=== PATIENT | female | born 1940 | race Caucasian/White ===

== ENCOUNTER → 2017-01-25 | Outpatient (CLI) | payer OTHER ==
[~2017-01-25] MED LIST: AMBIEN10 M1 PO; EFFEXOR XR150 MG PO; LANSOPRAZOLE30 MG PO; MULTI VITAMINS1 TAB PO; NEURONTIN300 MG PO; POTASSIUM99 M1 PO; PREVACID30 M1 PO; SYNTHROID,LEVO75 MCG PO; XANAX0.25 MG PO
[2017-01-26 16:09] LABS: FECAL WBC Final report (None Seen)
== END | disposition home or self-care (01) ==
LOC: US 07:21
PROVIDERS: Nurse Practitioner
DX: N28.1 Cyst of kidney, acquired (principal); R10.13 Epigastric pain; R19.7 Diarrhea, unspecified

== ENCOUNTER → 2017-01-26 | Outpatient (CLI) | payer OTHER ==
[~2017-01-26] MED LIST changes: +EFFEXOR XR75 M1 PO; +NEURONTIN600 MG PO
[2017-01-27 18:10] LABS: STOOL PH 5.5 (7.0-7.5)
[2017-01-28 13:05] LABS: FECAL WBC Final report (None Seen)
== END | disposition home or self-care (01) ==
LOC: LAB 11:58
PROVIDERS: Nurse Practitioner
DX: R19.7 Diarrhea, unspecified (principal)

== ENCOUNTER 2017-01-28 14:25 | Inpatient (IN) | payer OTHER ==
[2017-01-28] VITALS (9 sets, daily range): BP systolic 105–140; BP diastolic 56–84
[~2017-01-28] VITALS: Ht 167.6 cm; Wt 50.8 kg
--- NOTE | ~2017-01-28 | PR ---
[place], [place] PROGRESS NOTE NAME: LOLA VASQUEZ UNIT #: [id number] ROOM: [facility] DOCTOR: AARON DAVIS MD BIRTHDATE: [birth year] DOS: 01/30/2017 SUBJECTIVE: The patient has been noted comfortable at this time with the reduction of symptoms of shortness of breath, coughing. She has been using the oxygen supplementation nasal cannula. Denies symptoms of chest pain or abdominal pain. Continued on anticoagulation for the pulmonary embolism of the right lower lobe arterial branches. The patient was also continued on the bronchodilators and other treatment plan of management including nicotine replacement patches and the antibiotics. OBJECTIVE: VITAL SIGNS: Of the patient, which have been recorded showed the temperature noted as normal to 99.3 degrees Fahrenheit, respiratory rate 17-16, heart rate 68, blood pressure 150/60-109/63. The pulse oxygen saturation on room air 98% saturation recorded. HEENT: Examination shows no acute change. NECK: Supple. CARDIOVASCULAR: S1, S2 audible. LUNGS: The patient was noted with crackles of the lungs, noted decreased breaths in the lower portion of the lungs. ABDOMEN: Soft, nontender. LABORATORY DATA: INR today 1.2, PTT 42. BMP this morning noted normal BUN and creatinine. CBC this morning, WBC count 10.9, hemoglobin 9.1, , platelet count was normal. IMPRESSION: 1. The patient with acute pulmonary embolism. The patient was noted with right lower pulmonary arterial branches with acute hypoxic respiratory failure. 2. Bilateral pleural fluid of the patient with possibility of superimposed congestive heart failure as well. 3. Suspected acute pneumonia for this patient as well. 4. Left lower lung mass as well. PLAN OF TREATMENT: Continue the current plan of management as in progress. The patient responded to treatment with antibiotics and bronchodilators. Continue oxygen supplementation, maintain saturation 90% and greater. The patient was started on the Coumadin from yesterday with monitoring INR. Upon therapeutic INR, the unfractionated therapeutic heparin will be discontinued. [place], [place] PROGRESS NOTE NAME: LOLA VASQUEZ UNIT #: [id number] ROOM: [facility] DOCTOR: AARON DAVIS MD BIRTHDATE: [birth year] AARON BAKER MD CM:PNMILDRED [phone] AARON YANG MD 01/31/17144 interface
--- NOTE | ~2017-01-28 | PR ---
[place], [place] PROGRESS NOTE NAME: LOLA VASQUEZ [facility] #: [id number] UNIT #: [id number] ROOM: 402 DOCTOR: ROBE MURRAY MD BIRTHDATE: [birth year] DOS: 02/03/2017 CARDIOLOGY PROGRESS NOTE SUBJECTIVE: The patient was seen at her bedside today 02/03/2017, for followup of her paroxysmal atrial fibrillation, pulmonary embolism, and cardioembolic stroke. She feels better today. Her speech has improved and is almost back to baseline. She denies any focal weakness. Her INR is therapeutic or slightly elevated at 3.3. Her heart rate remains at about 100. She remains in atrial fibrillation. PHYSICAL EXAMINATION: GENERAL: She is a slender, elderly white female, who is awake, alert and oriented. VITAL SIGNS: Pulse is 100 and irregularly irregular, blood pressure is 96/60. She is afebrile. She weighs 50.8 kilograms with a body mass index of 18.1. HEENT: Normocephalic, atraumatic. Extraocular muscles are intact. Sclerae are clear. Her Carotids are full. LUNGS: Respirations are unlabored. She has clear lungs with decreased breath sounds at the bases. She has no presacral edema. HEART: Has an irregularly irregular rhythm without murmurs or gallops. ABDOMEN: Soft and normoactive. EXTREMITIES: Showed no edema. IMPRESSION: 1. Newly documented atrial fibrillation with rapid ventricular response. 2. Acute pulmonary embolism. First episode documented on 01/28/2017. 3. Left lower lobe lung mass measuring 3.9 cm in diameter associated with pleural effusions and possible pneumonia. 4. Small left hemispheric strokes, most likely cardioembolic in origin due to the presence of left atrial clot from her recently documented atrial fibrillation. 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 The patient states that she has now given up cigarettes. 6. Ten-pound unintentional weight loss recently. 7. History of peptic ulcer disease. 8. Protein-calorie malnutrition. PLAN: We will resume a small dose of Coumadin to maintain an INR between 2 and 3. We will also start her on digoxin to help better control her blood pressure. I cannot increase her diltiazem or her metoprolol any further because of blood pressure issues. If her INR remains stable and her heart rate improves, she can probably be discharged after that. Further evaluation of her lung mass will be per her primary team and Dr. Peace. I thank the hospitalist group for asking our advice regarding her care. [place], [place] PROGRESS NOTE NAME: LOLA VASQUEZ UNIT #: [id number] ROOM: [facility] DOCTOR: ROBE MURRAY MD BIRTHDATE: [birth year] ROBE MURRAY MD CM:PNTRANS [phone] ROBE MURRAY MD 02/03/172220 interface
--- NOTE | ~2017-01-28 | PR ---
[place], [place] PROGRESS NOTE NAME: LOLA VASQUEZ [facility] #: [id number] UNIT #: [id number] ROOM: 402 DOCTOR: ROBE MURRAY MD BIRTHDATE: [birth year] DOS: 02/02/2017 SUBJECTIVE: The patient was seen at her bedside today 02/02/2017 for followup of her recently documented atrial fibrillation. She tells me that she feels well, but she was noted yesterday to have episodes of mild aphasia. Today it is almost gone, but she still has trouble with word finding. She denies any focal weakness. She denies any headache or lightheadedness. An MRI of the head shows multiple small acute to subacute infarcts in the left temporal and parietal lobe associated with mild edema, but no significant mass effect or hemorrhage. The patient is already anticoagulated with warfarin and her INR is supratherapeutic at 4.7 today. No other therapy is therefore available at this time. The patient remains in atrial fibrillation. Her heart rate response to atrial fibrillation has been reasonably well controlled. She still has a cough, but it has decreased and she has not had any pleuritic chest pain or ankle edema. PHYSICAL EXAMINATION: VITAL SIGNS: Today, pulse is 100 and irregularly irregular. Blood pressure is 105/62. She is afebrile. NECK: Supple. She has no jugular distention. Carotids are full without bruits. LUNGS: Respirations are unlabored. Her chest is clear to auscultation and percussion with decreased breath sounds at the left base. HEART: Has an irregularly irregular rhythm without murmurs or gallops. ABDOMEN: Benign. EXTREMITIES: Showed no edema. IMPRESSION: 1. Newly documented atrial fibrillation with rapid ventricular response. 2. Acute pulmonary embolism, first episode documented 01/28/2017. 3. Left lower lobe lung mass measuring 3.9 cm in diameter associated with bilateral pleural effusions and possible pneumonia. 4. Small left hemispheric strokes, most likely cardioembolic in origin due to the presence of clotting in the left atrium from her recently documented atrial fibrillation. 5. half-way and ongoing cigarette abuse up until the time of this hospitalization. 6. Ten-pound unintentional weight loss recently. 7. History of peptic ulcer disease. 8. Protein calorie malnutrition. PLAN: The patient is already supratherapeutically anticoagulated. No other anticoagulants will be administered at this time. Hopefully, the cardioembolic phenomenon was due to residual thrombus that had formed in the left atrium before we began anticoagulation and therefore should not become a continual problem as she remains on anticoagulation chronically. We will continue to rely on her primary team and Dr. Peace to manage her pneumonia and pleural effusion. Further evaluation and management of her lung mass will be guided by Dr. Peace. [place], [place] PROGR[id number] #: [id number] ROOM: [facility] DOCTOR: ROBE MURRAY MD BIRTHDATE: [birth year] I thank the hospitalist group for asking our advice regarding her care. ROBE MURRAY MD CM:PNTRANS [phone] ROBE MURRAY MD 02/03/17 0508 interface
--- NOTE | ~2017-01-28 | PR ---
[place], [place] PROGRESS NOTE NAME: LOLA AVSQUEZ [facility] #: [id number] UNIT #: [id number] ROOM: 402 DOCTOR: ROBE MURRAY MD BIRTHDATE: [birth year] DOS: 02/01/2017 CARDIOLOGY PROGRESS NOTE SUBJECTIVE: The patient was seen at her bedside today, February 01, 2017, for followup of her paroxysmal atrial fibrillation and recent pulmonary embolism. She is a 76-year-old woman without previous history of heart disease who presented to the hospital on January 28, 2017, with acute shortness of breath. She was found to have pulmonary embolism and atrial fibrillation with rapid ventricular response. She was anticoagulated and placed on diltiazem and metoprolol for rate control. She spontaneously converted to sinus rhythm. She is noted to have possible infections and bilateral pleural effusions. She also does have a 3.9 cm diameter mass in her left lower lobe. From a cardiac point of view, she was doing well until early this morning when she went back into atrial fibrillation with a rapid ventricular response. This morning on a diltiazem drip, she remains somewhat rapid with heart rates in the 100-120 range. She does have occasional pleuritic chest pain. She states her cough has decreased dramatically and denies any peripheral edema. PHYSICAL EXAMINATION: VITAL SIGNS: Today, her pulse is 100 and irregularly irregular, blood pressure is 115/74, she is febrile. HEENT: Normocephalic, atraumatic. Extraocular muscles are intact. NECK: Supple. She has no jugular distention. Carotids are full. I heard no bruits. LUNGS: Respirations were unlabored at rest. She does have a few crackles at the right base and decreased breath sounds at the left base. She had no presacral edema or chest wall tenderness. HEART: Had an irregularly irregular rhythm. There are no murmurs or gallops. ABDOMEN: Benign. EXTREMITIES: Showed no edema. I reviewed her chest x-ray from yesterday. She does have bilateral pleural effusions. The one on the right seems somewhat larger to me than what she had on admission. The mass is apparently unchanged from admission in her left lower lobe. I reviewed her echocardiogram from January 31, 2017, left ventricular size, wall thickness and systolic functions are all normal with stage 2 diastolic relaxation abnormalities. Right ventricular size and functions appear normal. The aortic valve appears sclerotic. IMPRESSION: 1. Newly documented atrial fibrillation with rapid ventricular response. 2. Acute pulmonary embolism, first episode, documented on January 28, 2017. 3. Left lower lobe lung mass measuring 3.9 cm in diameter associated with bilateral pleural effusions and possible pneumonia. 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 5. Recent 10-pound unintentional weight loss. [place], [place] PROGRESS NOTE NAME: LOLA VASQUEZ [facility] #: [id number] UNIT #: [id number] ROOM: 402 DOCTOR: ROBE MURRAY MD BIRTHDATE: [birth year] 6. History of peptic ulcer disease. 7. Protein calorie malnutrition. PLAN: The patient's INR has increased to 5.3, so I would withhold warfarin today. We have resumed her diltiazem drip and I will place her back on oral diltiazem along with her metoprolol to try to control her rate again. She will be treated by her primary team for potential pneumonia evaluation of her lung mass and pleural effusions will be per Dr. Peace recommendations. We will continue to follow her with her primary physicians. I thank the hospitalist group for asking our advice regarding her care. ROBE MURRAY MD CM:PNTRANS [phone] ROBE MURRAY MD 02/01/172234 interface
--- NOTE | ~2017-01-28 | PR ---
[place], [place] PROGRESS NOTE NAME: LOLA VASQUEZ UNIT #: [id number] ROOM: 402 DOCTOR: AARON DAVIS MD BIRTHDATE: [birth year] DOS: 02/01/2017 PULMONARY PROGRESS NOTE SUBJECTIVE: She has been noted comfortable at this time, resting on the bed. Denies symptoms of chest pain. The coughing has been gradually subsiding. Denies any symptoms of abdominal pain. The patient has been continued to be managed for the atrial fibrillation as well and getting anticoagulation. The INR was noted elevated above the therapeutic range. OBJECTIVE: VITAL SIGNS: Shows a normal temperature, respiratory rate 20, heart rate of 71-120 previously, blood pressure 115/74 recorded this morning. The pulse oxygen saturation on room air is 99% saturation noted. HEENT: Examination shows head was atraumatic. Eyes nonicterus. NECK: Supple. CARDIOVASCULAR SYSTEM: S1, S2 audible. LUNGS: Noted without any wheezing or crackles at the present time. ABDOMEN: Soft, nontender. LABORATORY DATA: INR was noted as 5.3. Echocardiogram of the patient that was completed on 01/31/2017 of the patient was reported with findings of normal echocardiogram for this patient was described. IMPRESSION: 1. Bilateral pleural fluid with acute bacterial pneumonia for this patient noted and left lower lung mass. 2. Atrial fibrillation, new onset for the patient with intermittent rapid ventricular response. 3. Bilateral pleural fluid. 4. History of a past chronic nicotine dependence as well. 5. Progressive resolution of the acute hypoxic respiratory failure as well. PLAN OF TREATMENT: Monitoring the pleural fluid for this patient. Diuretic therapy was started yesterday, which will be continued. Repeat chest x-ray will be done in the morning for reassessment of pleural fluid progression. Other previous treatment, therapy, plan of management to be continued without any changes. Usual care. All other supportive care and therapies. [place], [place] PROGRESS NOTE NAME: LOLA VASQUEZ UNIT #: [id number] ROOM: 402 DOCTOR: AARON DAVIS MD BIRTHDATE: [birth year] AARON BAKER MD CM:PNTRANS [id number] AARON YANG MD 02/02/17 0029 interface
--- NOTE | ~2017-01-28 | PR ---
[place], [place] PROGRESS NOTE NAME: LOLA VASQUEZ [facility] #: [id number] UNIT #: [id number] ROOM: 402 DOCTOR: ROBE MURRAY MD BIRTHDATE: [birth year] DOS: 01/31/2017 SUBJECTIVE: The patient was seen today 01/31/2017 at her bedside in the intensive care unit for followup of her atrial fibrillation and pulmonary embolism. She is a 76-year-old woman who has a history of long-term and ongoing cigarette abuse. She presented to the hospital on this occasion with worsening dyspnea and chest pain. She was found to have an acute pulmonary embolism and atrial fibrillation. She was anticoagulated and reverted spontaneously the sinus rhythm with rate control only. Her evaluation included a CAT scan of the chest, which showed a possible pneumonia and a left lower lobe lung mass. The evaluation of this is not yet complete. PAST HISTORY: Includes, 1. COPD. 2. Long-term and ongoing cigarette abuse. 3. Pancreatitis. 4. History of peptic ulcer disease. 5. Status post gastric surgery. 6. History of abdominal hernia repair. 7. History of bilateral cataract resection and lens implantation. 8. History of cholecystectomy. The patient specifically denies any history of heart disease, but does state that several family members have heart disease and she obviously has multiple risks. The patient does admit to a 10-pound weight loss lately, which was unintentional. PHYSICAL EXAMINATION: GENERAL: She is a slender white female who is awake, alert, and oriented. VITAL SIGNS: Pulse is 62 and regular, blood pressure is 102/72. She is afebrile. She weighs 50.8 kilograms with a body mass index of 18.1. HEENT: Normocephalic, atraumatic. Extraocular muscles are intact. Sclerae are clear. Pupils are equal, round, and reactive to light. The oral mucosa is moist. Tongue is midline. NECK: Supple. She has no jugular distention. Carotids are full. There were no obvious bruits. She had no neck or supraclavicular masses. LUNGS: Respirations are unlabored. Her chest has decreased breath sounds with crackles at the bases. She has no presacral edema. HEART: Has a regular rhythm with an S4 gallop. I heard no S3. ABDOMEN: Soft. EXTREMITIES: Showed no edema. Peripheral pulses are diminished, but palpable in the feet. IMPRESSION: 1. Newly documented atrial fibrillation with rapid ventricular response, spontaneously reverted to sinus rhythm. 2. Acute pulmonary embolism, first episode. 3. Abnormal chest x-ray suggesting pneumonia and left lung mass. 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 5. Ten-pound unintentional weight loss recently. 6. History of peptic ulcer disease. 7. Protein-calorie malnutrition. PLAN: The patient is now therapeutic with her INR at 2.8. We will therefore stop heparin. An echocardiogram will be obtained. If plans are being made for her to undergo a pulmonary procedure to determine the nature of the lung mass, we probably will do a pharmacologic stress test first. However, I will wait until her pneumonia is better treated before subjecting her to that. We will continue to follow the patient with her other physicians. We thank the Hospitalist group for asking our advice regarding her care. ROBE MURRAY MD CM:PNTRANS [phone] ROBE MURRAY MD 02/01/17 0358 interface
--- NOTE | ~2017-01-28 | PR ---
[place], [place] PROGRESS NOTE [id number] UNIT #: [id number] ROOM: 402 DOCTOR: AARON DAVIS MD BIRTHDATE: [birth year] DOS: 02/03/2017 PULMONARY PROGRESS NOTE SUBJECTIVE: She has been comfortably resting. The patient is sitting on the bed. Denies any acute shortness of breath, coughing, sputum expectoration or any symptoms of chest pain. The Cardizem drip has been discontinued yesterday. The patient was taking oral medications for the ____ atrial fibrillation. Continue anticoagulation, therapeutic INR noted today. OBJECTIVE: VITAL SIGNS: Show normal temperature, respirations 18, heart rate 96, blood pressure 96/60-107/60. Pulse oxygen saturation of the patient recorded as 96% on room air. HEENT: Showed no acute change. NECK: Supple. CARDIOVASCULAR: S1, S2 audible. LUNGS: The patient noted without any wheezing or crackles at the present time. ABDOMEN: Soft, nontender. LABORATORY DATA: INR this morning was noted as 3.3. IMPRESSION: 1. The patient with left lower lung mass with resolving acute congestive heart failure, pleural fluid for the patient. 2. Therapeutic anticoagulation was noted at present time. 3. Patient with resolving acute COPD exacerbation and other respiratory problems. PLAN OF TREATMENT: From the pulmonary standpoint, patient could be discharged home to have a followup appointment in the office for further assessment and management of COPD as well as the current left lower lung mass. In the meantime, continue current therapy plan and management and other care. Usual care, other supportive therapy, plan of care. [place], [place] PROGRESS NOTE NAME: LOLA VASQUEZ UNIT #: [id number] ROOM: 402 DOCTOR: AARON DAVIS MD BIRTHDATE: [birth year] AARNO BAKER MD CM:PNTRANS [id number] AARON YANG MD 02/04/1744 interface
--- NOTE | ~2017-01-28 | CON ---
[place], [place] [id number] UNIT #: [id number] ROOM: [facility] DOCTOR: AARON DAVIS MD BIRTHDATE: [birth year] DOS: 01/29/2017 PULMONARY CONSULTATION EVALUATION AND MANAGEMENT REASON FOR CONSULTATION: Assess the patient for current mass lesion, other abnormal finding on CT scan of the chest with pulmonary embolism as well. HISTORY OF PRESENT ILLNESS: A 76-year-old white female unknown to me from the past. She presented to the emergency as she has been complaining of symptoms of shortness of breath with pain described in the neck and the upper portion of the chest. The pain has been described mild to moderate at times. She denies symptoms of hemoptysis. The cough has been noted with some sputum expectoration. The patient was noted with symptoms of wheezing at times as well. She denies symptoms of abdominal pain. The patient stated the symptoms have not been present prior to the last couple of weeks. She was assessed in the emergency room for the patient with several testings done including CT of the chest, which was suggested with a pulmonary embolism in the right lower lobe, pulmonary arterial branches and left lower lobe mass lesion for this patient or density. REVIEW OF SYSTEMS: CONSTITUTIONAL: Denies symptoms of fatigue and tiredness. EYES: Denies any burning, redness, or tenderness. EARS, NOSE, THROAT SYMPTOMS: No sore throat, hoarseness, otalgia, postnasal drainage. CARDIOVASCULAR: Denies anginal pain, edema, or pain of the lower extremities. GASTROINTESTINAL: Denies dysphagia, nausea, vomiting, diarrhea, abdominal pain, hematemesis, melena, or hematochezia. SKIN: For the patient noted without any lesions or rashes. CENTRAL NERVOUS SYSTEM: Denies dizziness, headache, diplopia, syncopal episode. Remaining systems were reviewed with the patient, they were noted all negative. PAST MEDICAL HISTORY: 1. This patient was described as COPD. 2. Past history of pancreatitis. 3. Peptic ulcer disease. 4. Chronic nicotine dependence. PAST SURGICAL HISTORY: 1. History of abdominal hernia repair. 2. Gastric surgery. 3. Cataract extraction with lens implantation. 4. Right foot surgery as well. 5. Cholecystectomy. SOCIAL HISTORY: The patient is currently , lives at home. She has been noted tobacco use since age of [age] years old, pack of cigarettes per day actively until the hospitalization. Denies any history of chronic alcohol dependence or any use of illicit drugs. She does have a history of occupation related [place], [place] REPORT OF CONSULTATION NAME: LOLA VASQUEZ UNIT #: [id number] ROOM: [facility] DOCTOR: SAMUEL YANG MD,AARON BIRTHDATE: [birth year] pulmonary exposure. FAMILY HISTORY: Both parents have been with complications related to myocardial infarction. HOME MEDICATIONS: Noted use of Xanax, Neurontin, levothyroxine, Effexor XR, and Ambien. PHYSICAL EXAMINATION: GENERAL: This is a 76-year-old female, who has been noted currently awake and alert without any distress at the present time. Using the oxygen supplementation with the nasal cannula. VITAL SIGNS: Height was noted 5 feet 6 inches, weight 112 pounds, BMI of only 18. Normal temperature, respiratory rate 16-23. Heart rate 65 and noted 154 previously with atrial fibrillation, new onset. The blood pressure ranging between 126/78 for the patient to 96/62. Pulse oxygen saturation of the patient recorded on room air 96% to 97% saturation recorded. HEENT: Some loss of muscle mastication. Head was atraumatic. Eyes nonicterus. NECK: Supple. CARDIOVASCULAR: S1, S2 is audible. LUNGS: Shows crackles for this patient were noted and decreased breath sounds in the lungs bilaterally. ABDOMEN: Soft, nontender. Bowel sounds present. CENTRAL NERVOUS SYSTEM: The patient was noted without any gross focal deficit. EXTREMITIES: Show no edema, clubbing or cyanosis. NEUROLOGIC: Cranial nerves 2-12 intact. LABORATORY DATA: CBC on 01/28/2017, for the patient that was done yesterday showed WBC count 14.6, hemoglobin 10.0, hematocrit 30.9, platelet count of 459,000. Lactic acid 2.3 yesterday. PT/PTT were noted normal yesterday. CMP of the patient that was done for this patient on 01/28/2017, shows glucose 119, BUN and creatinine was normal, potassium 2.9. ProBNP was 10,889. C-reactive protein was noted as 9.28. Follow up lactic acid was 1.5. Troponin for the patient were noted normal, first set, second and third set. CBC of the patient that was done this morning, WBC count 12.7, hemoglobin 9.6, hematocrit 29.6, platelet count was normal. CMP of this morning noted normal BUN and creatinine. Albumin was noted as 1.8. PTT for this patient noted therapeutic of the patient as 71.5. CT scan of the head that was done yesterday for the patient reported without any acute abnormalities. Chronic small vessel ischemic changes were described. CT scan of the cervical spine without contrast was also completed, which was reported without any acute abnormalities. CT of the chest for the patient was reported as a pulmonary embolism in the right lower lobe pulmonary arterial branches with the mass lesion for this patient in the left lower lobe, pulmonary infiltration, pleural fluid and other abnormalities. The PTT repeated again was noted therapeutic. CK-MB, troponin of the patient , last set for the patient this morning was negative. D-dimer that I obtained for the patient noted mildly elevated at 1.07. IMPRESSION: 1. The patient who had been currently admitted to the hospital noted with [place], [place] REPORT OF CONSULTATION NAME: LOLA VASQUEZ UNIT #: [id number] ROOM: [facility] DOCTOR: SAMUEL YANG MD,[facility] BIRTHDATE: [birth year] recurrent atypical symptoms of the patient were noted with finding consistent with acute pulmonary embolism. The CT scan of the chest has been personally reviewed and discussed with another radiologist of the patient and was noted with small pulmonary embolism noted in the right lower lobe pulmonary arterial branches. Evidence of bilateral small pleural fluid noted which does not seem to be large at this time and amenable for any thoracentesis. Mass lesion in the left lower lobe of the patient suggestive of possibility of malignancy as the possibility of loculated pleural fluid was considered, but the density measurement was reported at 40 Hf for this patient suggestive of a solid mass. 2. Rule out deep venous thrombosis of the lower extremity for this patient as well. 3. Chronic nicotine dependence. The current finding of the patient on the CT scan of the chest were also suggestive of possibility of congestive heart failure, which should be assessed by the Cardiology Services and treated. Possibility of acute superimposed pneumonia cannot be completely excluded. 4. Chronic heavy nicotine dependence. 5. New onset of atrial fibrillation currently noted in control range with the current intervention in medical management. PLAN OF TREATMENT: The patient will be continued on anticoagulation, ultrasound of the lower extremities has been ordered. Obtain the blood culture for this patient as well, as well as they ordered the sputum culture as well. The mass workup for the mass lesion would be done as an outpatient. At this time, the patient does not require any use of corticosteroids for COPD as it does not seem to have acute exacerbation. Other supportive therapy, plan of management to be continued as well. Usual care. Supportive plan of management. Further treatment changes will be done based on the progression of the illness. The oxygen supplementation will be given to the patient in case of any hypoxia. The patient will be started on IV Rocephin for this patient for the medical management of recurrent suspected pneumonia. Thanks for allowing me to participate in the care of this patient. AARON BAKER MD CM:CONSTR:REPORT OF CONSULTATION 1101 01/29/17 [id number] interface
--- NOTE | ~2017-01-28 | PR ---
[place], [place] PROGRESS NOTE NAME: LOLA VASQUEZ UNIT #: [id number] ROOM: 402 DOCTOR: SAMUEL YANG MD,AARON BIRTHDATE: [birth year] DOS: 02/02/2017 SUBJECTIVE: She has been showing continued gradual reduction and improvement in the respiratory symptoms, continue anticoagulation noted with mild Coumadin toxicity. The patient has been suspected possibility of TIA yesterday for this patient because of the expressive aphasia the patient difficult to recognition temporarily and then after that she was feeling better. CT scan of the head for this patient was completed that was noted essentially without any acute abnormalities. She has been still continued on intravenous Cardizem drip. OBJECTIVE: VITAL SIGNS: For the patient, which has been recorded showed the temperature noted normal, respiratory rate 18, heart rate 99-105, blood pressure 117/78-105/72. Intake is 1400 mL, output 600 mL. Pulse oxygen saturation was noted as 97% on room air. HEENT: Shows age-related changes. NECK: Supple. CARDIOVASCULAR SYSTEM: S1, S2 audible. LUNGS: Shows improvement in the air entry of the lungs was noted. ABDOMEN: Soft, nontender. LABORATORY DATA: BMP of the patient noted normal, albumin 1.8. The PT/INR noted 4.7 mildly about the therapeutic range. Chest x-ray done this morning shows significant reduction of the pleural fluid for the patient as well as improving area of infiltration left lower lung mass was still noted as previously. IMPRESSION: 1. The patient with resolving fluid overloaded bilateral pleural fluid of the patient as well as acute bacterial pneumonia progressively and gradually. 2. Atrial fibrillation, which has been noted currently with better control arrange for this patient with intravenous Cardizem drip. 3. Suspected severe protein calorie malnutrition status as well. 4. Suspected lung malignancy with the left lower lung mass with history of chronic nicotine dependence. PLAN OF TREATMENT: The patient management of the atrial fibrillation has been already continued adjustment of the medication of the anticoagulation the patient to bring the INR therapeutic. Continuation of the other previous treatment, therapy, plan of management. Usual care, other supportive care and plan of management. Usual care. The assessment and management has been discussed with the patient's son in detail on today's visit. [place], [place] PROGRESS NOTE NAME: LOLA VASQUEZ UNIT #: [id number] ROOM: 402 DOCTOR: AARON DAVIS MD BIRTHDATE: [birth year] AARON BAKER MD CM:PNTRANS [phone] [id number] AARON YANG MD 02/02/17 1227 interface
--- NOTE | ~2017-01-28 | PR ---
[place], [place] PROGRESS NOTE NAME: LOLA VASQUEZ [facility] #: [id number] UNIT #: [id number] ROOM: 402 DOCTOR: SAMUEL YANG MD,AARON BIRTHDATE: [birth year] DOS: 01/31/2017 PULMONARY PROGRESS NOTE SUBJECTIVE: She has been noted comfortable at this time, resting, sitting on the chair. Denies symptoms of chest pain. Coughing and shortness of breath has been gradually subsiding. There were no symptoms of abdominal pain. The patient has been continued on anticoagulation for this patient for the medical management of pulmonary embolism. The patient was getting the Coumadin with therapeutic INR recorded this morning. OBJECTIVE: VITAL SIGNS: For the patient, which has been recorded showed the temperature of the patient noted as normal. The respiratory rate of the patient recorded as 16. Heart rate 66, blood pressure 114/65-102/75. Intake for the patient recorded as 1000 mL, the output was 700 mL approximately. The pulse oxygen 94% saturation on room air. HEENT: Examination shows no acute change. NECK: Supple. CARDIOVASCULAR SYSTEM: S1, S2 audible. LUNGS: The patient was noted without any crackles, decreased breath sounds noted in the lower portion of the lungs were noted bilaterally. ABDOMEN: Flat, soft, nontender. EXTREMITIES: Shows no edema, clubbing or cyanosis. LABORATORY DATA: Labs on this patient. Chest x-ray done this morning for the patient shows small possible medium pleural fluid on the right side and a small left pleural fluid noted basilar area of infiltration. The mass lesion for the patient was still noted in the left lower lobe for this patient as well. IMPRESSION: 1. The patient with resolving acute hypoxic respiratory failure with improving atrial fibrillation. 2. Acute pulmonary embolism. 3. Small to medium bilateral pleural fluid, greater in the right than the left side secondary to congestive heart failure. 4. Left lower lobe lung mass for this patient, which will require further assessment as well. PLAN OF TREATMENT: Diuretic therapy for this patient would be needed for the management of current pleural fluids. The patient will be started on Lasix 40 mg IV daily. Monitor chest x-ray. Anticoagulation noted therapeutic for this patient at this time. The heparin which had been given intravenously will be discontinued. Monitor respiratory status closely. Other supportive therapy, plan of management and care. Usual treatment. Further treatment changes will be done based on the assessment based on progression of the illness. Thoracentesis at this time was not planned for the pleural fluid. Conservative treatment will be done for this patient at the present time. If the fluids enlarge with the current conservative treatment, certainly thoracentesis at that time will be indicated. Repeat chest x-ray of the patient has been ordered in [place], [place] PROGRESS NOTE NAME: LOLA VASQUEZ UNIT #: [id number] ROOM: [facility] DOCTOR: SAMUEL YANG MD,AARON BIRTHDATE: [birth year] the morning for the patient as the patient will be started on Lasix 40 mg daily and the potassium supplementation. Daily lab monitor for the patient for the electrolytes, and BUN and creatinine has been ordered as well. AARON BAKER MD CM:CAMI [phone] AARON YANG MD 02/01/17 0256 interface
[~2017-01-28 14:25] MED LIST changes: -EFFEXOR XR75 M1 PO; -NEURONTIN600 MG PO
[2017-01-28 15:02] LABS: BASO % 0.2 % (0.0-1.0); EOS % 0.1 % (1.0-4.0); HEMATOCRIT 30.9 % (37.0-47.0); IG # 0.1 10*3/uL (0.0-0.1); LYMPH # 1.7 10*3/uL (1.3-4.4); LYMPH % 11.7 % (27.0-41.0); MEAN CELL VOLUME 90.6 fl (81.0-99.0); MEAN CORPUSCULAR HGB 29.3 pg (27.0-31.0); MEAN CORPUSCULAR HGB CONC 32.4 g/dl (33.0-37.0); MEAN PLATELET VOLUME 9.3 fl (9.6-12.3); MONO # 1.1 10*3/uL (0.1-1.0); MONO % 7.8 % (3.0-9.0); NEUT # 11.6 10*3/uL (2.3-7.9); NEUT % 79.7 % (47.0-73.0); PLATELET COUNT AUTOMATED 459 10*3/uL (130-400); RED BLOOD COUNT 3.41 10*6/uL (4.10-5.10); RED CELL DISTRI WIDTH 14.1 % (0-14.5); WHITE BLOOD COUNT 14.6 10*3/uL (4.8-10.8)
[2017-01-28 15:15] LABS: INTERNATIONAL NORM RATIO 1.1 (2.0-3.5)
[2017-01-28 15:22] LABS: ALKALINE PHOSPHATASE 154 U/L (45-117); BILIRUBIN, TOTAL 0.3 mg/dl (0.2-1.0); BUN 9 mg/dl (7-24); C-REACTIVE PROTEIN 9.28 MG/DL (0-0.3); CARBON DIOXIDE 26 mmol/L (21-32); CHLORIDE 107 mmol/L (98-107); CKMB 0.8 ng/ml (0.5-3.6); CPK 55 U/L (26-192); EST GLOM FILT AFRICAN AMERICAN > 60 ml/min; GLUCOSE 119 mg/dL (65-99); MAGNESIUM 2.1 mg/dL (1.5-2.1); POTASSIUM 2.9 mmol/L (3.5-5.1); SGOT/AST 24 IU/L (3-35); SGPT/ALT 17 U/L (12-78); SODIUM 142 mmol/L (136-145); TOTAL PROTEIN 5.9 gm/dL (6.4-8.2)
[2017-01-28 15:28] LABS: TROPONIN I < 0.015 ng/ml (<0.045)
[2017-01-28 16:59] LABS: LA>2 REFLEX 2 HR DRAW NOW
[2017-01-28] MEDS ORDERED: NEURONTIN600 MG PO (18:42)
[2017-01-28] MEDS ORDERED: EFFEXOR XR75 M1 PO (18:45)
[2017-01-29] VITALS: BP 98/65
[2017-01-29 04:00] VITALS: BP 91/52
[2017-01-29 04:29] LABS: BASO % 0.3 % (0.0-1.0); EOS # 0.2 10*3/uL (0.0-0.4); EOS % 1.8 % (1.0-4.0); HEMATOCRIT 29.6 % (37.0-47.0); HEMOGLOBIN 9.6 g/dl (12.0-16.0); IG # 0.1 10*3/uL (0.0-0.1); LYMPH # 4.2 10*3/uL (1.3-4.4); LYMPH % 33.4 % (27.0-41.0); MEAN CELL VOLUME 91.1 fl (81.0-99.0); MEAN CORPUSCULAR HGB 29.5 pg (27.0-31.0); MEAN CORPUSCULAR HGB CONC 32.4 g/dl (33.0-37.0); MEAN PLATELET VOLUME 9.6 fl (9.6-12.3); MONO # 1.1 10*3/uL (0.1-1.0); MONO % 8.4 % (3.0-9.0); NEUT # 7.1 10*3/uL (2.3-7.9); NEUT % 55.6 % (47.0-73.0); PLATELET COUNT AUTOMATED 428 10*3/uL (130-400); RED BLOOD COUNT 3.25 10*6/uL (4.10-5.10); RED CELL DISTRI WIDTH 14.2 % (0-14.5); WHITE BLOOD COUNT 12.7 10*3/uL (4.8-10.8)
[2017-01-29 04:46] LABS: ALBUMIN 1.8 gm/dl (3.1-4.5); ALKALINE PHOSPHATASE 163 U/L (45-117); BILIRUBIN, TOTAL 0.4 mg/dl (0.2-1.0); BUN 13 mg/dl (7-24); CARBON DIOXIDE 25 mmol/L (21-32); CHLORIDE 108 mmol/L (98-107); CHOLESTEROL 96 mg/dL (<200); CKMB < 0.5 ng/ml (0.5-3.6); CPK 34 U/L (26-192); EST GLOM FILT AFRICAN AMERICAN > 60 ml/min; GLUCOSE 97 mg/dL (65-99); HDL CHOLESTEROL 61 mg/dl (40-60); LDL CHOLESTEROL 24 mg/dL (9-159); SGOT/AST 45 IU/L (3-35); SGPT/ALT 28 U/L (12-78); SODIUM 143 mmol/L (136-145); TOTAL PROTEIN 5.4 gm/dL (6.4-8.2); TRIGLYCERIDES 54 mg/dl (<150); TROPONIN I < 0.015 ng/ml (<0.045); VLDL CHOLESTEROL 11 mg/dL (6-40)
[2017-01-29 04:47] LABS: FREE T4 1.56 ng/dl (0.76-1.46); POTASSIUM 4.4 mmol/L (3.5-5.1)
[2017-01-29 04:52] LABS: THYROID STIM HORMONE (HS) 0.732 uIU/ml (0.358-4.75)
[2017-01-29 04:53] LABS: HEMOGLOBIN A1c 5.7 % (4.8-5.6)
[2017-01-29 06:51] LABS: FOLIC ACID 4.45 ng/mL (>5.38)
[2017-01-29 08:00] VITALS: BP 96/62
[2017-01-29 10:38] LABS: CKMB 0.7 ng/ml (0.5-3.6); CPK 33 U/L (26-192)
[2017-01-29 10:45] LABS: TROPONIN I < 0.015 ng/ml (<0.045)
[2017-01-29 12:00] VITALS: BP 103/58
[2017-01-29 16:00] VITALS: BP 135/74
[2017-01-29 20:00] VITALS: BP 137/71
[2017-01-30] VITALS: BP 105/56
[2017-01-30 04:00] VITALS: BP 109/63
[2017-01-30 06:08] LABS: BASO % 0.3 % (0.0-1.0); EOS # 0.2 10*3/uL (0.0-0.4); EOS % 1.9 % (1.0-4.0); HEMATOCRIT 29.4 % (37.0-47.0); HEMOGLOBIN 9.1 g/dl (12.0-16.0); IG # 0.1 10*3/uL (0.0-0.1); LYMPH # 3.9 10*3/uL (1.3-4.4); LYMPH % 35.8 % (27.0-41.0); MEAN CELL VOLUME 92.7 fl (81.0-99.0); MEAN CORPUSCULAR HGB 28.7 pg (27.0-31.0); MEAN PLATELET VOLUME 10.3 fl (9.6-12.3); MONO # 0.9 10*3/uL (0.1-1.0); MONO % 7.9 % (3.0-9.0); NEUT # 5.8 10*3/uL (2.3-7.9); NEUT % 53.5 % (47.0-73.0); PLATELET COUNT AUTOMATED 417 10*3/uL (130-400); RED BLOOD COUNT 3.17 10*6/uL (4.10-5.10); RED CELL DISTRI WIDTH 14.2 % (0-14.5); WHITE BLOOD COUNT 10.9 10*3/uL (4.8-10.8)
[2017-01-30 06:23] LABS: BUN 16 mg/dl (7-24); CARBON DIOXIDE 27 mmol/L (21-32); CHLORIDE 108 mmol/L (98-107); EST GLOM FILT AFRICAN AMERICAN > 60 ml/min; GLUCOSE 81 mg/dL (65-99); POTASSIUM 4.4 mmol/L (3.5-5.1); SODIUM 140 mmol/L (136-145)
[2017-01-30 07:28] LABS: INTERNATIONAL NORM RATIO 1.2 (2.0-3.5); PROTHROMBIN TIME 13.4 SECONDS (9.0-12.4)
[2017-01-30 08:00] VITALS: BP 115/62
[2017-01-30 12:00] VITALS: BP 124/68
[2017-01-30 16:00] VITALS: BP 115/59
[2017-01-30 20:00] VITALS: BP 124/74
[2017-01-31] VITALS: BP 106/62
[2017-01-31 04:00] VITALS: BP 102/72
[2017-01-31 06:03] LABS: BASO % 0.4 % (0.0-1.0); EOS # 0.2 10*3/uL (0.0-0.4); EOS % 1.7 % (1.0-4.0); HEMATOCRIT 30.2 % (37.0-47.0); HEMOGLOBIN 9.3 g/dl (12.0-16.0); LYMPH # 4.4 10*3/uL (1.3-4.4); LYMPH % 43.8 % (27.0-41.0); MEAN CELL VOLUME 92.4 fl (81.0-99.0); MEAN CORPUSCULAR HGB 28.4 pg (27.0-31.0); MEAN CORPUSCULAR HGB CONC 30.8 g/dl (33.0-37.0); MEAN PLATELET VOLUME 10.3 fl (9.6-12.3); MONO % 9.6 % (3.0-9.0); NEUT # 4.4 10*3/uL (2.3-7.9); NEUT % 44.1 % (47.0-73.0); PLATELET COUNT AUTOMATED 435 10*3/uL (130-400); RED BLOOD COUNT 3.27 10*6/uL (4.10-5.10); RED CELL DISTRI WIDTH 14.4 % (0-14.5); WHITE BLOOD COUNT 9.9 10*3/uL (4.8-10.8)
[2017-01-31 06:12] LABS: BUN 14 mg/dl (7-24); CARBON DIOXIDE 28 mmol/L (21-32); CHLORIDE 108 mmol/L (98-107); EST GLOM FILT AFRICAN AMERICAN > 60 ml/min; GLUCOSE 80 mg/dL (65-99); INTERNATIONAL NORM RATIO 2.8 (2.0-3.5); POTASSIUM 4.4 mmol/L (3.5-5.1); PROTHROMBIN TIME 31.4 SECONDS (9.0-12.4); SODIUM 141 mmol/L (136-145)
[2017-01-31 08:00] VITALS: BP 114/65
[2017-01-31 12:00] VITALS: BP 114/90; BP 148/93
[2017-01-31 16:00] VITALS: BP 130/56
[2017-01-31 20:00] VITALS: BP 132/85
[2017-02-01] VITALS (7 sets, daily range): BP systolic 90–115; BP diastolic 50–74
[2017-02-01 07:34] LABS: PROTHROMBIN TIME 62.6 SECONDS (9.0-12.4)
[2017-02-01 07:40] LABS: INTERNATIONAL NORM RATIO 5.3 (2.0-3.5)
[2017-02-01 07:47] LABS: ALBUMIN 1.7 gm/dl (3.1-4.5); ALKALINE PHOSPHATASE 198 U/L (45-117); BILIRUBIN, TOTAL 0.2 mg/dl (0.2-1.0); BUN 11 mg/dl (7-24); CARBON DIOXIDE 29 mmol/L (21-32); CHLORIDE 108 mmol/L (98-107); EST GLOM FILT AFRICAN AMERICAN > 60 ml/min; GLUCOSE 78 mg/dL (65-99); POTASSIUM 3.8 mmol/L (3.5-5.1); SGOT/AST 16 IU/L (3-35); SGPT/ALT 17 U/L (12-78); SODIUM 141 mmol/L (136-145); TOTAL PROTEIN 5.4 gm/dL (6.4-8.2)
[2017-02-02] VITALS (10 sets, daily range): BP systolic 100–123; BP diastolic 54–83
[2017-02-02 07:13] LABS: ALBUMIN 1.8 gm/dl (3.1-4.5); BILIRUBIN, TOTAL 0.2 mg/dl (0.2-1.0); BUN 13 mg/dl (7-24); CARBON DIOXIDE 30 mmol/L (21-32); CHLORIDE 105 mmol/L (98-107); EST GLOM FILT AFRICAN AMERICAN > 60 ml/min; GLUCOSE 77 mg/dL (65-99); POTASSIUM 3.8 mmol/L (3.5-5.1); SGOT/AST 16 IU/L (3-35); SGPT/ALT 17 U/L (12-78); SODIUM 140 mmol/L (136-145); TOTAL PROTEIN 5.9 gm/dL (6.4-8.2)
[2017-02-02 07:16] LABS: ALKALINE PHOSPHATASE 216 U/L (45-117)
[2017-02-02 07:22] LABS: INTERNATIONAL NORM RATIO 4.7 (2.0-3.5)
[2017-02-03] VITALS: BP 107/60
[2017-02-03 07:12] LABS: ALBUMIN 1.7 gm/dl (3.1-4.5); ALKALINE PHOSPHATASE 185 U/L (45-117); BILIRUBIN, TOTAL 0.2 mg/dl (0.2-1.0); BUN 13 mg/dl (7-24); CARBON DIOXIDE 29 mmol/L (21-32); CHLORIDE 104 mmol/L (98-107); EST GLOM FILT AFRICAN AMERICAN > 60 ml/min; GLUCOSE 85 mg/dL (65-99); POTASSIUM 3.7 mmol/L (3.5-5.1); SGOT/AST 12 IU/L (3-35); SGPT/ALT 12 U/L (12-78); SODIUM 140 mmol/L (136-145); TOTAL PROTEIN 5.6 gm/dL (6.4-8.2)
[2017-02-03 07:25] LABS: INTERNATIONAL NORM RATIO 3.3 (2.0-3.5); PROTHROMBIN TIME 38.1 SECONDS (9.0-12.4)
[2017-02-03 08:00] VITALS: BP 96/60
[2017-02-03 12:00] VITALS: BP 83/57
[2017-02-03] MEDS ORDERED: TOPROL XL50 M1 PO (13:48)
[2017-02-03] MEDS ORDERED: COUMADIN1 M1 PO (13:48)
[2017-02-03] MEDS ORDERED: LANOXIN0.125 MG PO (13:48)
[2017-02-03] MEDS ORDERED: DILTIAZEM 24HR120 MG PO (13:48)
[2017-02-03] MEDS ORDERED: FUROSEMIDE40 MG PO (13:48)
== END 2017-02-03 15:10 | disposition home health service (06) | DRG 175 ==
LOC: ED 14:25 → EDHOLD 16:14 → 4E 16:14 → ICCU 16:50 → 4E 01-31 09:58
PROVIDERS: Emergency Medicine; Hospitalist; Internal Medicine; Internal Medicine Cardiovascular Disease; Internal Medicine Critical Care Medicine; Internal Medicine Hospice and Palliative Medicine
DX: I26.99 Other pulmonary embolism without acute cor pulmonale (principal); J15.6 Pneumonia due to other Gram-negative bacteria; J96.01 Acute respiratory failure with hypoxia; I63.9 Cerebral infarction, unspecified; E43 Unspecified severe protein-calorie malnutrition; E87.2 Acidosis; D68.59 Other primary thrombophilia; I50.32 Chronic diastolic (congestive) heart failure; J84.10 Pulmonary fibrosis, unspecified; J44.0 Chronic obstructive pulmonary disease with (acute) lower respiratory infection; J44.1 Chronic obstructive pulmonary disease with (acute) exacerbation; Z68.1 Body mass index [BMI] 19.9 or less, adult; I48.91 Unspecified atrial fibrillation; E87.6 Hypokalemia; D64.9 Anemia, unspecified; D47.3 Essential (hemorrhagic) thrombocythemia; D72.810 Lymphocytopenia; R73.9 Hyperglycemia, unspecified; R74.8 Abnormal levels of other serum enzymes; K27.9 Peptic ulcer, site unspecified, unspecified as acute or chronic, without hemorrhage or perforation; R91.8 Other nonspecific abnormal finding of lung field; E03.9 Hypothyroidism, unspecified; Z96.1 Presence of intraocular lens; F17.210 Nicotine dependence, cigarettes, uncomplicated; Z82.49 Family history of ischemic heart disease and other diseases of the circulatory system; Z98.42 Cataract extraction status, left eye; Z98.41 Cataract extraction status, right eye; Z90.49 Acquired absence of other specified parts of digestive tract; Z79.899 Other long term (current) drug therapy; Z91.81 History of falling; Z90.710 Acquired absence of both cervix and uterus; Z82.3 Family history of stroke; Z83.3 Family history of diabetes mellitus

== ENCOUNTER 2017-02-27 08:47 | Inpatient (IN) | payer OTHER ==
[~2017-02-27] VITALS: Ht 167.6 cm; Wt 52.7 kg
--- NOTE | ~2017-02-27 | WRIGHTHP ---
[place], [place] PATIENT HISTORY AND PHYSICAL EXAM NAME: LOLA VASQUEZ UNIT #: [id number] ROOM: 531 DOCTOR: REILLY BEE DO BIRTHDATE: [birth year] DOS: PRIMARY CARE PHYSICIAN: Dr. Jared Best. The patient was seen and evaluated with the resident on 02/27/2017. Please see the resident's note for further details. ASSESSMENT: 1. Unsteady gait with recent multiple falls. 2. Syncope. 3. Acute digoxin toxicity. 4. Hypotension. 5. Mild dehydration. 6. Acute renal failure. 7. Metabolic encephalopathy. 8. Mild hypokalemia. 9. Chronic diastolic heart failure. 10. Paroxysmal atrial fibrillation, first recognized in January 2017. The patient is currently in atrial fibrillation. 11. Chronic anticoagulation with Coumadin; however, this has recently been on hold for a planned procedure, which was scheduled for tomorrow. 12. Left lung mass, first recognized in January 2017, which is concerning for malignancy. A scheduled outpatient biopsy was planned tomorrow. 13. Recent pulmonary embolism in January 2017. 14. 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 15. Chronic obstructive pulmonary disease. 16. Pulmonary fibrosis. 17. History of gastroesophageal reflux disease and peptic ulcer disease. 18. Ex-smoker. She recently quit after her admission to the hospital in January 2017. 19. Hypothyroidism. 20. Anxiety. 21. Depression. 22. History of pancreatitis. 23. Echocardiogram in January 2017 measured a normal ejection fraction. PLAN: Hold digoxin. Consult Cardiology. The patient was given some IV fluids in the Emergency Department. We will hold her diuretics. Repeat labs in the morning. Consult Dr. Peace for the lung mass. [place], [place] PATIENT HISTORY AND PHYSICAL EXAM NAME: LOLA VASQUEZ UNIT #: [id number] ROOM: 531 DOCTOR: REILLY BEE DO BIRTHDATE: [birth year] REILLY BEE DO CM:HISPHYS:PATIENT HISTORY AND PHYSICAL EXAMINATION 16 40 REILLY BEE DO 02/27/17 1841 interface
--- NOTE | ~2017-02-27 | PR ---
[place], [place] PROGRESS NOTE NAME: LOLA VASQUEZ [facility] #: [id number] UNIT #: [id number] ROOM: 531 DOCTOR: SAMUEL YANG MD,AARON BIRTHDATE: [birth year] DOS: 03/01/2017 SUBJECTIVE: She has been comfortably resting at this time on a bed. The patient underwent CT-guided needle aspiration biopsy of the right lower lung mass. She has not been noted any symptoms of chest pain or any abdominal pain. OBJECTIVE: VITAL SIGNS: Normal temperature, respiratory rate 18, heart rate 94, blood pressure 141/74. The pulse ox saturation on room air 96% saturation. HEENT: No acute change. NECK: Supple. CARDIOVASCULAR: S1, S2 is audible. LUNGS: The patient was noted without any wheezing or crackles at the present time. ABDOMEN: Soft, nontender. LABORATORY DATA: The patient's CBC, hemoglobin 9.5, hematocrit 30.7, platelet count were normal and WBC count was normal. BMP for the patient was noted as sodium minimally elevated at 146, chloride 112. Remaining electrolytes are grossly normal. IMPRESSION: 1. Status post CT-guided needle aspiration biopsy of the left lower lung mass considered currently malignant possible to metastasis to the right adrenal gland. 2. Chronic obstructive pulmonary disease as well. PLAN OF TREATMENT: No changes in the plan of management. Continue the patient on current therapy, plan of care as previously. Usual care. Further treatment changes will be done based on progression of the illness. AARON BAKER MD CM:PNTRANS [phone] AARON YANG MD 03/02/17 0335 interface
--- NOTE | ~2017-02-27 | PR ---
[place], [place] PROGRESS NOTE [id number] UNIT #: [id number] ROOM: 531 DOCTOR: SAMUEL YANG MD,AARON BIRTHDATE: [birth year] DOS: 03/02/2017 PULMONARY PROGRESS NOTE SUBJECTIVE: The patient has been noted comfortable at this time the patient. The blood pressure of the patient was noted normal. The respiratory symptoms have been noted progressive resolution. OBJECTIVE: VITAL SIGNS: Showed normal temperature, respiratory rate 18, heart rate 92, blood pressure 123/64. Pulse oxygen saturation on room air was 96% saturation. HEENT: Showed no new change. NECK: Supple. CARDIOVASCULAR SYSTEM: S1, S2 audible. LUNGS: The patient was noted with [id number] decreased breath sounds noted in the lungs bilaterally. ABDOMEN: Soft, nontender. LABORATORY DATA: CMP this morning was noted normal BUN and creatinine. Albumin 1.7. The biopsy of the left lower lung mass for this patient was available and described as nonsmall cell lung cancer for this patient with possible consideration of squamous cell cancer. IMPRESSION: 1. The patient with resolution of the orthostasis for the patient most likely at this time. Blood pressure noted normal. 2. Nonsmall cell lung cancer, possibly a metastasis to be considered in the right adrenal gland for this patient as well. PLAN OF TREATMENT: No changes in the plan of management at this time. Continue the patient on current therapy, plan of care. Possible consideration home discharge for further assessment as an outpatient. AARON BAKER MD CM:PNTRANS [phone] AARON YANG MD 03/03/17 0727 interface
--- NOTE | ~2017-02-27 | CON ---
[place], [place] REPORT OF CONSULTATION NAME: LOLA VASQUEZ [facility] #: [id number] UNIT #: [id number] ROOM: 531 DOCTOR: AARON DAVIS MD BIRTHDATE: [birth year] DOS: 02/28/2017 REASON FOR CONSULTATION: Assess the patient for current noted left lower lung mass. HISTORY OF PRESENT ILLNESS: This is a 76-year-old white female who has been admitted to the hospital previously. She was treated for acute pulmonary embolism also noted with acute pneumonia of the left lower lobe with an area of mass, lesion in the left lower lobe. She has been treated adequately at that time. She was also noted with acute hypoxic respiratory failure, which resolved as well as atrial fibrillation with rapid ventricular response, new onset. She has a CT scan of the chest was done for the patient and the PET scan was also obtained. PET scan was noted abnormal for this patient and the left lower lobe mass of the patient showing SUV 29.5. A 10 mm nodule was also identified in the patient's right adrenal gland that showed SUV of 17.4. The patient has been scheduled to have the biopsy done in [facility] in the next coming days. She presented to the hospital and admitted to the hospital. The patient came into the Emergency Room because of the progressive symptoms of severe headache. The patient also fell down at home. The patient denies any symptoms of chest pain. Denies symptoms of coughing, hemoptysis. She has been currently noted symptoms of forgetfulness as well. The patient was also described with the possibility of hypotension as well at home. REVIEW OF SYSTEMS: CONSTITUTIONAL: General weakness, fatigue were described. EYES: Denies any burning, redness, or tenderness. EARS, NOSE, THROAT SYMPTOMS: No sore throat, hoarseness, otalgia, postnasal drainage. CARDIOVASCULAR: Denies anginal pain, edema, pain of the lower extremities. GASTROINTESTINAL: Denies dysphagia, nausea, vomiting, diarrhea, abdominal pain, hematemesis, melena, or hematochezia. MUSCULOSKELETAL: Denies acute joint pain, redness, or tenderness. SKIN: No lesions or rashes. CENTRAL NERVOUS SYSTEM: No dizziness. The patient was described and fall for this patient, etiology is unclear, maybe related to the hypotension or other etiology. PAST MEDICAL HISTORY: 1. Centrilobular emphysema for the patient. 2. Possibility of metastatic lung cancer remains to be diagnosed. At the present time, awaiting further assessment and intervention. 3. Atrial fibrillation. Chronic anticoagulation as well. 4. Peptic ulcer disease. 5. History of nicotine abuse as well. 6. Past history of pancreatitis. 7. Acute pulmonary embolism of the patient as well. 8. History of hypothyroidism. PAST SURGICAL HISTORY: 1. Abdominal aortic aneurysm. [place], [place] REPORT OF CONSULTATION NAME: LOLA VASQUEZ UNIT #: [id number] ROOM: 531 DOCTOR: SAMUEL YANG MD,[facility] BIRTHDATE: [birth year] 2. The gastric biopsy. 3. Cataract extraction with lens implantation. 4. Right foot surgery. 5. Cholecystectomy. SOCIAL HISTORY: The patient is currently . She lives at home. Denies history of alcohol use or illicit drug use. Tobacco use was noted since age of [age] years old for this patient about a pack of cigarettes per day. Denies any history of alcohol use or any illicit drug use. Denies history of occupation related pulmonary exposure. FAMILY HISTORY: The patient's both parents have been for the patient from complications related to myocardial infarction. MEDICATIONS: For the patient for home were listed at the time of admission as use of; 1. ProAir HFA inhaler. 2. Xanax 0.25 mg p.o. t.i.d. p.r.n. for agitation. 3. Digoxin 125 mcg daily. 4. Cardizem-CD 120 mg daily. 5. Lunesta at bedtime. 6. Lasix 40 mg daily. 7. Neurontin 600 mg p.o. t.i.d. for this patient. 8. Synthroid 75 mcg daily. 9. Toprol-XL 50 mg p.o. b.i.d. 10. Nicotine 21 mg patches. 11. Anoro for this patient 1 inhalation daily. 12. Effexor 225 mg p.o. daily. 13. Coumadin 1 mg p.o. daily. 14. Omeprazole 40 mg daily. DRUG ALLERGIES: For this patient was noted as no known drug allergies. PHYSICAL EXAMINATION: GENERAL: This is a 76-year-old female who has been noted currently awake and alert without any acute distress. VITAL SIGNS: Height were recorded by the nursing staff. At the time of admission for this patient was noted as normal temperature, respiratory rate 18-20, heart rate of 76-50. The blood pressure 77/46 for this patient to 107/59. HEENT: Examination shows head was atraumatic. Eyes nonicterus. NECK: Supple. CARDIOVASCULAR: S1, S2 audible. LUNGS: Noted without any wheezing or crackles. General reduction in the breath sounds were noted. ABDOMEN: Soft, flat, nontender, bowel sounds present. EXTREMITIES: Show no edema, clubbing, cyanosis. SKIN: No lesions or rashes. LABORATORY DATA: The patient's INR on 02/27/2017, 1.2. CBC on 02/27/2017, [place], [place] REPORT OF CONSULTATION NAME: LOLA VASQUEZ UNIT #: [id number] ROOM: 531 DOCTOR: SAMUEL YANG MD,[facility] BIRTHDATE: [birth year] hemoglobin 8.4, hematocrit 25.7, platelet count was normal and WBC count were normal. CMP of the patient on 02/27/2017, BUN of 9, creatinine 1.04, potassium 3.2, albumin 1.8. CT scan of the head for this patient that was done 02/27/2017. The patient was described as no acute intracranial pathologies. Chronic white matter disease was noted. Digoxin level of the patient on 02/27/2017 was 2.28, which was noted above the therapeutic range. CK-MB and troponin for the patient was noted first, second set for this patient and third set on this morning, patient noted all normal. CBC of this morning: WBC count was 9.0, hemoglobin 9.6, hematocrit 29.8, platelet count was normal. The CMP for this patient that was done this morning was noted as BUN 9, creatinine was normal. Potassium of 3.4. Albumin 1.8. PT and PTT this morning was still noted as normal. The chest x-ray, the patient shows persistent mass, lesion for the patient in the left lower lobe with the resolution of previously noted pulmonary infiltration. IMPRESSION: 1. The patient had been currently admitted to the hospital noted with significant orthostatic hypotension, observed dropping the blood pressure of the patient from lying down to standing position from 102-85 or low. She has been already given IV fluids for that. 2. Adrenal lesion for the patient, rule out Hopewell's disease for this patient as well. 3. Possibility of metastatic lesion to the brain, certainly to be excluded with current suspected lung cancer, which was noted with the lesion in the adrenal gland on the right side. 4. Forgetfulness of the patient multifactorial for this patient. 5. The patient with centrilobular emphysema with past tobacco use as well. 6. History of hypothyroidism. 7. Atrial fibrillation as well. 8. Severe protein-calorie malnutrition. PLAN OF TREATMENT: Continue the patient's current plan of management. Monitoring of the orthostatic changes of the patient. Workup for the Prabhjot's disease should be done. The biopsy of the left lower lung mass could be obtained. The adrenal lesion was described for this patient as I discussed with the Interventional Radiology [facility] will be very hard to get biopsy because of the small size. The patient was recommended possibility of a dedicated protocol. The patient's CT scan of the abdomen on MRI for this patient for further identification of the current abnormalities. Consider MRI of the head for this patient, rule out any metastatic disease since the CT scan of the chest is not noted all with sensitive to rule out any metastatic lesions. Supportive therapy, plan of management. Continue supplementation of the potassium as well. Adjustment of the anticoagulation of the patient per recommendation of Cardiology services. Usual care. Supportive therapy, plan of management and other care. She was also noted severe protein calorie malnutrition would be advised about addition of calorie support. Close monitoring for any fall for this patient as well. [place], [place] REPORT OF CONSULTATION NAME: LOLA VASQUEZ UNIT #: [id number] ROOM: 531 DOCTOR: AARON DAVIS MD BIRTHDATE: [birth year] Thanks for allowing me to participate in the care of this patient. AARON BAKER MD CM:CONSTR:REPORT OF CONSULTATION 1042 03/01/17 0120 interface
--- NOTE | ~2017-02-27 | CON ---
[place], [place] REPORT OF CONSULTATION NAME: LOLA VASQUEZ [facility] #: [id number] UNIT #: [id number] ROOM: 531 DOCTOR: ROBE MURRAY MD BIRTHDATE: [birth year] DOS: 02/28/2017 CARDIOLOGY CONSULTATION The patient was seen today at her bedside on 02/28/2017. HISTORY OF PRESENT ILLNESS: She is a 76-year-old woman who was recently hospitalized on 02/27/2017 for management of painful breathing. She was found to have atrial fibrillation with a rapid ventricular response as well as a pulmonary embolism. She was anticoagulated. The CAT scan of her chest showed an incidental left lower lobe mass that clinically appears to be a cancer. She was scheduled to come back into the hospital as an outpatient today for a biopsy of the mass, but came in to the hospital yesterday because of episodic weakness and falling. The patient states that in fact she feels well, but loses her balance and falls easily. This is especially true if she is bending over. She did have some nausea and vomiting prior to admission and was not able to take all of her medicines as prescribed. She was felt to be dehydrated prior to admission and she was hypotensive. It was felt that this was due in part to her medications. She was mildly digoxin toxic on admission. PAST MEDICAL HISTORY: Includes, 1. Recently documented atrial fibrillation with rapid ventricular response. 2. Normal left ventricular systolic function with diastolic relaxation abnormalities and chronic diastolic heart failure. 3. Echocardiogram 01/31/2017 showed normal left ventricular size, wall thickness, regional wall motion and systolic function with stage 2 diastolic relaxation abnormalities. Right ventricular size and function were normal. There was aortic sclerosis and trivial tricuspid insufficiency, but no evidence for pulmonary hypertension. 4. Chronic obstructive pulmonary disease. The patient was smoking up until the time of this admission. 5. Pulmonary embolism documented January 2017. 6. Pulmonary fibrosis. 7. Mass of left lung, felt likely to be malignant. Workup in progress. MEDICATIONS PRIOR TO ADMISSION: Anoro Ellipta 1 inhalation daily, albuterol 2 puffs q.i.d., alprazolam 0.25 mg t.i.d., digoxin 125 mcg daily, diltiazem CD 120 mg b.i.d., Lunesta 1 mg at h.s., furosemide 40 mg daily, gabapentin 600 mg t.i.d., levothyroxine 75 mcg per day, metoprolol succinate 50 mg b.i.d., omeprazole 40 mg daily, venlafaxine 225 mg daily, warfarin 1 mg daily at 6:00 and nicotine patch 21 mg applied daily. ALLERGIES: The patient has no known drug allergies. REVIEW OF SYSTEMS: The patient did have mild diplopia prior to admission. She denied loss of consciousness but felt weak and lightheaded. She did have several falls prior to admission. She denies nausea or vomiting. At this time, she denies fevers, chills or sweats. She denies focal weakness. She denies [place], [place] REPORT OF CONSULTATION NAME: LOLA VASQUEZ UNIT #: [id number] ROOM: 531 DOCTOR: ROBE MURRAY MD BIRTHDATE: [birth year] chest pain or abdominal pain. She denies palpitations. She had occasional peripheral edema. She denies bleeding from any site. She does admit to some pedal edema. The remainder of the review of systems is negative except as noted above. SOCIAL HISTORY: The patient smoked up until this hospitalization at least a pack a day. She does not consume excessive alcohol. PHYSICAL EXAMINATION: GENERAL: The patient is a well-nourished elderly white female who is awake, alert and oriented. VITAL SIGNS: Pulse is 76 and regular, blood pressure is 122/70. She is afebrile. She weighs 52.7 kilograms with a body mass index of 18.7. HEENT: Normocephalic, atraumatic. Extraocular muscles are intact. Sclerae are clear. Pupils are equal, round and reactive to light. The oral mucosa is moist. Tongue is midline. NECK: Supple. She has no jugular distention. Carotids are full. I heard no bruits. She had no neck or supraclavicular masses. LUNGS: Respirations are unlabored at rest. She has decreased breath sounds at the left base. She has no wheezes or rales but she does have marked expiratory prolongation bilaterally. She has no chest wall tenderness or presacral edema. CARDIOVASCULAR: Her heart has an irregularly irregular rhythm. No murmurs or gallops are heard. ABDOMEN: Soft and normally active. EXTREMITIES: Showed 1+ edema bilaterally. LABORATORY DATA: I reviewed her electrocardiogram, which shows atrial fibrillation with a controlled ventricular response and nonspecific ST and T-wave changes. Hemoglobin is 9.6, hematocrit 29.8, white count 9000, platelet count 341,000. INR is 1.2. Sodium 142, potassium is 3.4, chloride 110, BUN 9, and creatinine 0.93. Troponin levels were normal. Digoxin level on admission was 2.28 and upon repeat was 1.92. IMPRESSION: 1. Newly documented atrial fibrillation. 2. Pulmonary embolism documented approximately one month ago when the patient presented with atrial fibrillation. 3. Left lung mass, likely malignant, evaluation in progress. 4. Cigarette abuse up till the time of the current admission. 5. Lightheadedness and falling likely due to dehydration, mild digoxin toxicity, etc. PLAN: The patient's medications all withheld since her hospitalization. I will renew her beta andi, but continue to withhold diltiazem and digoxin. We will follow her with her other physicians in the hospital and await results for her biopsy. I thank the hospitalist physicians and Dr. Peace for asking our advice regarding her care. [place], [place] REPORT OF CONSULTATION NAME: LOLA VASQUEZ UNIT #: [id number] ROOM: 531 DOCTOR: ROBE MURRAY MD BIRTHDATE: [birth year] ROBE MURRAY MD CM:CONSTR:REPORT OF CONSULTATION 1412 03/01/17 0254 interface
--- NOTE | ~2017-02-27 | EKG ---
[place], [place] ELECTROCARDIOGRAM REPORT NAME: LOLA VASQUEZ UNIT #: [id number] ROOM: 531 DOCTOR: ROBE MURRAY MD BIRTHDATE: [birth year] DOS: 02/27/2017 TIME: 0907 hours. Atrial fibrillation with controlled ventricular response rate 67. Nonspecific ST and T-wave changes. Abnormal electrocardiogram. ROBE MURRAY MD CM:EKGRPT:ELECTROCARDIOGRAM REPORT 1224 1628 ROBE MURRAY MD
--- NOTE | ~2017-02-27 | EKG ---
[place], [place] ELECTROCARDIOGRAM REPORT NAME: LOLA VASQUEZ UNIT #: [id number] ROOM: 531 DOCTOR: ROBE MURRAY MD BIRTHDATE: [birth year] DOS: 02/27/2017 TIME: 1318 Atrial fibrillation with slow ventricular response, heart rate 55. Nonspecific ST and T wave changes. Abnormal electrocardiogram. ROBE MURRAY MD CM:EKGRPT:ELECTROCARDIOGRAM REPORT 1224 1633 ROBE MURRAY MD
[~2017-02-27 08:47] MED LIST changes: +COUMADIN1 M1 PO; +DILTIAZEM 24HR120 MG PO; +EFFEXOR XR75 M1 PO; +FUROSEMIDE40 MG PO; +LANOXIN0.125 MG PO; +NEURONTIN600 MG PO; +TOPROL XL50 M1 PO
[2017-02-27 08:50] VITALS: BP 88/56
[2017-02-27] MEDS ORDERED: METOPROLOL SUCC25 M2 PO (09:13)
[2017-02-27] MEDS ORDERED: AMBIEN5 MG PO (09:16)
[2017-02-27] MEDS ORDERED: OMEPRAZOLE40 MG PO (09:18)
[2017-02-27] MEDS ORDERED: ANORO ELLIPTA1 POW IH (09:25)
[2017-02-27] MEDS ORDERED: NICODERM C21 MG/24 H TD (09:27)
[2017-02-27 09:30] LABS: BASO % 0.3 % (0.0-1.0); EOS # 0.2 10*3/uL (0.0-0.4); EOS % 2.5 % (1.0-4.0); HEMATOCRIT 25.7 % (37.0-47.0); HEMOGLOBIN 8.4 g/dl (12.0-16.0); LYMPH # 2.6 10*3/uL (1.3-4.4); LYMPH % 29.2 % (27.0-41.0); MEAN CELL VOLUME 88.3 fl (81.0-99.0); MEAN CORPUSCULAR HGB 28.9 pg (27.0-31.0); MEAN CORPUSCULAR HGB CONC 32.7 g/dl (33.0-37.0); MEAN PLATELET VOLUME 9.2 fl (9.6-12.3); MONO # 0.8 10*3/uL (0.1-1.0); MONO % 8.6 % (3.0-9.0); NEUT # 5.2 10*3/uL (2.3-7.9); NEUT % 58.9 % (47.0-73.0); PLATELET COUNT AUTOMATED 319 10*3/uL (130-400); RED BLOOD COUNT 2.91 10*6/uL (4.10-5.10); RED CELL DISTRI WIDTH 14.6 % (0-14.5); WHITE BLOOD COUNT 8.8 10*3/uL (4.8-10.8)
[2017-02-27 09:37] LABS: INTERNATIONAL NORM RATIO 1.2 (2.0-3.5); PROTHROMBIN TIME 13.4 SECONDS (9.0-12.4)
[2017-02-27 09:50] LABS: ALBUMIN 1.8 gm/dl (3.1-4.5); ALKALINE PHOSPHATASE 150 U/L (45-117); BILIRUBIN, TOTAL 0.4 mg/dl (0.2-1.0); BUN 9 mg/dl (7-24); CARBON DIOXIDE 25 mmol/L (21-32); CHLORIDE 105 mmol/L (98-107); EST GLOM FILT AFRICAN AMERICAN > 60 ml/min; GLUCOSE 80 mg/dL (65-99); POTASSIUM 3.2 mmol/L (3.5-5.1); SGOT/AST 32 IU/L (3-35); SGPT/ALT 20 U/L (12-78); SODIUM 141 mmol/L (136-145); TOTAL PROTEIN 5.3 gm/dL (6.4-8.2); TROPONIN I 0.045 ng/ml (<0.045)
[2017-02-27 10:16] VITALS: BP 106/60
[2017-02-27 11:18] LABS: BILIRUBIN NEGATIVE (NEGATIVE); BLOOD NEGATIVE (NEGATIVE); CLARITY SL CLOUDY (CLEAR); COLOR YELLOW (YELLOW); GLUCOSE NEGATIVE (NEGATIVE); KETONE NEGATIVE (NEGATIVE); LEUKO ESTERASE NEGATIVE (NEGATIVE); NITRITE NEGATIVE (NEGATIVE); PH 5.5 (5.0-9.0); PROTEIN NEGATIVE (NEGATIVE); SPECIFIC GRAVITY <= 1.005 (1.005-1.030); UROBILINOGEN 0.2 E.U./dl (0.2-1.0)
[2017-02-27 11:27] LABS: URINE REFLEX COMMENT NO (NO)
[2017-02-27 11:30] VITALS: BP 90/57
[2017-02-27 11:32] VITALS: BP 90/57
[2017-02-27] MEDS ORDERED: JANTOVEN1 MG PO (13:59)
[2017-02-27] MEDS ORDERED: TOPROL XL50 M1 PO (14:11)
[2017-02-27] MEDS ORDERED: LUNESTA1 M1 PO (14:11)
[2017-02-27] MEDS ORDERED: PROAIR HFA8.5 GM INH (14:12)
[2017-02-27 14:37] LABS: CKMB 1.1 ng/ml (0.5-3.6); TROPONIN I 0.034 ng/ml (<0.045)
[2017-02-27 16:00] VITALS: BP 107/59
[2017-02-27 20:00] VITALS: BP 100/53
[2017-02-27 20:25] LABS: CKMB 1.1 ng/ml (0.5-3.6); TROPONIN I 0.035 ng/ml (<0.045)
[2017-02-28] VITALS (12 sets, daily range): BP systolic 77–135; BP diastolic 46–82
[2017-02-28 06:01] LABS: BASO # 0.1 10*3/uL (0.0-0.1); BASO % 0.7 % (0.0-1.0); EOS # 0.2 10*3/uL (0.0-0.4); EOS % 2.6 % (1.0-4.0); HEMATOCRIT 29.8 % (37.0-47.0); HEMOGLOBIN 9.6 g/dl (12.0-16.0); LYMPH # 2.9 10*3/uL (1.3-4.4); LYMPH % 32.3 % (27.0-41.0); MEAN CELL VOLUME 89.5 fl (81.0-99.0); MEAN CORPUSCULAR HGB 28.8 pg (27.0-31.0); MEAN CORPUSCULAR HGB CONC 32.2 g/dl (33.0-37.0); MEAN PLATELET VOLUME 9.2 fl (9.6-12.3); MONO # 0.8 10*3/uL (0.1-1.0); MONO % 9.1 % (3.0-9.0); PLATELET COUNT AUTOMATED 341 10*3/uL (130-400); RED BLOOD COUNT 3.33 10*6/uL (4.10-5.10); RED CELL DISTRI WIDTH 14.7 % (0-14.5)
[2017-02-28 06:16] LABS: ALBUMIN 1.8 gm/dl (3.1-4.5); ALKALINE PHOSPHATASE 158 U/L (45-117); BILIRUBIN, TOTAL 0.5 mg/dl (0.2-1.0); BUN 9 mg/dl (7-24); CARBON DIOXIDE 27 mmol/L (21-32); CHLORIDE 110 mmol/L (98-107); CPK 77 U/L (26-192); EST GLOM FILT AFRICAN AMERICAN > 60 ml/min; FREE T4 1.54 ng/dl (0.76-1.46); GLUCOSE 72 mg/dL (65-99); MAGNESIUM 1.7 mg/dL (1.5-2.1); POTASSIUM 3.4 mmol/L (3.5-5.1); SGOT/AST 28 IU/L (3-35); SGPT/ALT 22 U/L (12-78); SODIUM 142 mmol/L (136-145); TOTAL PROTEIN 5.2 gm/dL (6.4-8.2); TROPONIN I 0.035 ng/ml (<0.045)
[2017-02-28 06:27] LABS: DIGOXIN 1.92 ng/ml (0.8-2.0); THYROID STIM HORMONE (HS) 0.457 uIU/ml (0.358-4.75)
[2017-02-28 06:36] LABS: INTERNATIONAL NORM RATIO 1.2 (2.0-3.5); PROTHROMBIN TIME 13.1 SECONDS (9.0-12.4)
[2017-03-01] VITALS: BP 124/63
[2017-03-01 06:03] LABS: BASO % 0.4 % (0.0-1.0); EOS # 0.2 10*3/uL (0.0-0.4); EOS % 2.6 % (1.0-4.0); HEMATOCRIT 30.7 % (37.0-47.0); HEMOGLOBIN 9.5 g/dl (12.0-16.0); LYMPH # 3.3 10*3/uL (1.3-4.4); LYMPH % 34.9 % (27.0-41.0); MEAN CORPUSCULAR HGB 27.9 pg (27.0-31.0); MEAN CORPUSCULAR HGB CONC 30.9 g/dl (33.0-37.0); MEAN PLATELET VOLUME 9.4 fl (9.6-12.3); MONO # 0.9 10*3/uL (0.1-1.0); MONO % 9.2 % (3.0-9.0); NEUT # 4.9 10*3/uL (2.3-7.9); NEUT % 52.7 % (47.0-73.0); PLATELET COUNT AUTOMATED 326 10*3/uL (130-400); RED BLOOD COUNT 3.41 10*6/uL (4.10-5.10); RED CELL DISTRI WIDTH 14.8 % (0-14.5); WHITE BLOOD COUNT 9.4 10*3/uL (4.8-10.8)
[2017-03-01 06:43] LABS: BUN 9 mg/dl (7-24); CARBON DIOXIDE 26 mmol/L (21-32); CHLORIDE 112 mmol/L (98-107); EST GLOM FILT AFRICAN AMERICAN > 60 ml/min; GLUCOSE 78 mg/dL (65-99); SODIUM 146 mmol/L (136-145)
[2017-03-01 06:53] LABS: DIGOXIN 1.61 ng/ml (0.8-2.0)
[2017-03-01 06:55] LABS: POTASSIUM 4.4 mmol/L (3.5-5.1)
[2017-03-01 08:00] VITALS: BP 141/74
[2017-03-01 12:00] VITALS: BP 134/76
[2017-03-01 16:00] VITALS: BP 127/81
[2017-03-01 19:57] VITALS: BP 146/64
[2017-03-01 23:50] VITALS: BP 134/70
[2017-03-02 07:09] LABS: ALBUMIN 1.9 gm/dl (3.1-4.5); ALKALINE PHOSPHATASE 177 U/L (45-117); BILIRUBIN, TOTAL 0.5 mg/dl (0.2-1.0); BUN 9 mg/dl (7-24); CARBON DIOXIDE 24 mmol/L (21-32); CHLORIDE 107 mmol/L (98-107); EST GLOM FILT AFRICAN AMERICAN > 60 ml/min; GLUCOSE 84 mg/dL (65-99); POTASSIUM 3.7 mmol/L (3.5-5.1); SGOT/AST 25 IU/L (3-35); SGPT/ALT 21 U/L (12-78); SODIUM 141 mmol/L (136-145); TOTAL PROTEIN 5.7 gm/dL (6.4-8.2)
[2017-03-02 08:00] VITALS: BP 124/61
[2017-03-02 12:00] VITALS: BP 123/64
[2017-03-02 16:00] VITALS: BP 119/68
[2017-03-02] MEDS ORDERED: XARE20MG PO (17:03)
[2017-03-02] MEDS ORDERED: DILTIAZEM 24HR120 MG PO (17:03)
[2017-03-02] MEDS ORDERED: NATURE'S BLEND F1 MG PO (17:03)
[2017-03-02] MEDS ORDERED: KLOR-CON 1010 ME1 PO (17:06)
[2017-03-02 20:16] VITALS: BP 130/69
== END 2017-03-02 21:00 | disposition home health service (06) | DRG 917 ==
LOC: ED 08:47 → 5E 10:49 → EDHOLD 10:49 → 5E 11:26
PROVIDERS: Emergency Medicine; Family Medicine Adult Medicine; Internal Medicine; Internal Medicine Hospice and Palliative Medicine
PROC: 0BBJ3ZX Excision of Left Lower Lung Lobe, Percutaneous Approach, Diagnostic (ICD-10-PCS; principal; 2017-02-28)
DX: T46.0X1A Poisoning by cardiac-stimulant glycosides and drugs of similar action, accidental (unintentional), initial encounter (principal); N17.0 Acute kidney failure with tubular necrosis; E43 Unspecified severe protein-calorie malnutrition; G93.41 Metabolic encephalopathy; I50.32 Chronic diastolic (congestive) heart failure; J84.10 Pulmonary fibrosis, unspecified; I95.2 Hypotension due to drugs; C34.32 Malignant neoplasm of lower lobe, left bronchus or lung; Z68.1 Body mass index [BMI] 19.9 or less, adult; R26.9 Unspecified abnormalities of gait and mobility; R55 Syncope and collapse; E87.6 Hypokalemia; I48.0 Paroxysmal atrial fibrillation; Z79.01 Long term (current) use of anticoagulants; R91.8 Other nonspecific abnormal finding of lung field; Z86.711 Personal history of pulmonary embolism; Z86.73 Personal history of transient ischemic attack (TIA), and cerebral infarction without residual deficits; K21.9 Gastro-esophageal reflux disease without esophagitis; Z87.11 Personal history of peptic ulcer disease; Z87.891 Personal history of nicotine dependence; E03.9 Hypothyroidism, unspecified; F41.9 Anxiety disorder, unspecified; F32.9 Major depressive disorder, single episode, unspecified; Z91.81 History of falling; J43.2 Centrilobular emphysema